=== PATIENT | male | born 1945 | race Caucasian/White ===

== ENCOUNTER 2023-12-04 07:52 | Inpatient (IN) | payer MEDICARE ==
[2023-11-30 14:52] LABS: BASOPHILS % 0.1 % (0.0-1.0); HEMATOCRIT 39.7 % (38.2-49.6); HEMOGLOBIN 12.4 g/dL (14.0-18.0); LYMPHOCYTES # (AUTO) 0.4 (1.0-3.2); LYMPHOCYTES % 3.2 % (18.0-39.1); MEAN CORPUSCULAR HEMOGLOBIN 29.8 pg (28-32); MEAN CORPUSCULAR HGB CONC 31.2 g/dL (31-35); MEAN CORPUSCULAR VOLUME 95.4 fL (81-99); MONOCYTES # (AUTO) 0.6 (0.2-0.8); MONOCYTES % 4.3 % (4.4-11.3); NEUTROPHILS # (AUTO) 12.5 (2.1-6.9); PLATELET COUNT 237 x10e3/uL (140-360); RED BLOOD COUNT 4.16 x10e6/uL (4.3-5.7); RED CELL DISTRIBUTION WIDTH 15.4 % (11.7-14.4); WHITE BLOOD COUNT 13.61 x10e3/uL (4.8-10.8)
[2023-12-04] VITALS (27 sets, daily range): BP systolic 138–208; BP diastolic 62–122; PULSE 53–99; RESP 14–27; TEMP 97.8–98.1; O2SAT 98–100
[~2023-12-04] VITALS: Ht 177.8 cm; Wt 76.9 kg
[~2023-12-04 07:52] MED LIST: CRESTOR10 MG PO; ELIQUIS5 MG PO; FLOMAX0.4 MG PO; FUROSEMIDE40 MG PO; JARDIANCE25 MG PO; LOSARTAN POTASS25 MG PO; LYRICA50 MG PO; METOPROLOL SUCC50 MG PO; MINOCYCLINE HC100 MG PO; PANTOPRAZOLE SO40 MG PO; TRAZODONE HCL50 MG PO
[2023-12-04] MEDS: DEXTROSE 5% 250ML 250 ML IV ONE (08:31)
[2023-12-04] MEDS: LACTATED RINGER'S 1,000 ML ONE (08:32)
[2023-12-04 11:02] LABS: INR 3.35; PROTHROMBIN TIME 35.5 seconds (11.9-14.5)
[2023-12-04 11:03] LABS: PARTIAL THROMBOPLASTIN TIME 77.4 seconds (23.8-35.5)
[2023-12-04] MEDS ORDERED: FENTANYL CITRATE/PF 100MCG/2 ML INJ ONE (11:41)
[2023-12-04 11:54] LABS: BASOPHILS % 0.3 % (0.0-1.0); EOSINOPHILS # (AUTO) 0.1 (0.0-0.4); EOSINOPHILS % 0.7 % (0.0-6.0); HEMATOCRIT 42.9 % (38.2-49.6); HEMOGLOBIN 13.3 g/dL (14.0-18.0); LYMPHOCYTES # (AUTO) 0.8 (1.0-3.2); LYMPHOCYTES % 6.9 % (18.0-39.1); MEAN CORPUSCULAR HEMOGLOBIN 30.2 pg (28-32); MEAN CORPUSCULAR VOLUME 97.5 fL (81-99); MONOCYTES # (AUTO) 0.3 (0.2-0.8); MONOCYTES % 2.5 % (4.4-11.3); NEUTROPHILS # (AUTO) 10.1 (2.1-6.9); NEUTROPHILS % 86.9 % (38.7-80.0); PLATELET COUNT 236 x10e3/uL (140-360); RED CELL DISTRIBUTION WIDTH 15.2 % (11.7-14.4); WHITE BLOOD COUNT 11.61 x10e3/uL (4.8-10.8)
[2023-12-04 12:20] LABS: TROPONIN I 0.029 ng/mL (0-0.300)
[2023-12-04 12:22] LABS: ALBUMIN 3.4 g/dL (3.5-5.0); ALBUMIN/GLOBULIN RATIO 0.9 (0.8-2.0); BILIRUBIN,TOTAL 0.6 mg/dL (0.2-1.2); CALCIUM 8.7 mg/dL (8.4-10.2); CREATININE, SERUM 1.2 mg/dL (0.72-1.25); TOTAL PROTEIN 7.3 g/dL (6.5-8.1)
[2023-12-04 12:27] LABS: INR 1.06; PROTHROMBIN TIME 14.5 seconds (11.9-14.5)
[2023-12-04 12:28] LABS: PARTIAL THROMBOPLASTIN TIME 24.7 seconds (23.8-35.5)
[2023-12-04] MEDS ORDERED: EPINEPHRINE HCL 1:1000 1ML 1 MG/ML AMP ONE (12:33)
[2023-12-04] MEDS ORDERED: LIDOCAINE HCL 2% LOCAL INJ 5 ML SDV VIAL INJ ONE (12:33)
[2023-12-04] MEDS ORDERED: PROPOFOL IV EMULSION 10 MG/ML 20 ML VIAL ONE (12:33)
[2023-12-04] MEDS ORDERED: PROPOFOL IV EMULSION 10 MG/ML 50 ML VIAL IV ONE (12:33)
[2023-12-04 13:25] LABS: ABG HCO3 27 mmol/L (22-26); ABG PCO2 52 mmHg (35-45); ABG PH 7.32 (7.35-7.45); ABG PO2 287 mmHg (80-105)
[2023-12-04 13:26] LABS: ABG TCO2 28
[2023-12-04] MEDS: POTASSIUM CHLORIDE 20MEQ/100ML 100 ML IV SCH (14:40)
[2023-12-04] MEDS: MUPIROCIN 2% OINT 22 GM TUBE TOP SCH (14:40)
[2023-12-04] MEDS ORDERED: SODIUM CHLORIDE 0.9% 1000 ML BAG ONE (17:03)
[2023-12-04] MEDS ORDERED: SODIUM CHLORIDE FLUSH 10 ML SYR ONE (17:03)
[2023-12-04] MEDS ORDERED: EPINEPHRINE HCL SYRINGE ONE (17:03)
[2023-12-04] MEDS ORDERED: DEXTROSE 50% SYRINGE 50 ML IV PRN (17:30)
[2023-12-04] MEDS ORDERED: LORAZEPAM INJ 2 MG/ML VIAL ONE (17:31)
[2023-12-04] MEDS: LORAZEPAM INJ 2 MG/ML VIAL IV ONE (17:50)
[2023-12-04] MEDS: HYDRALAZINE HCL 20 MG/ML VIAL IV PRN (18:03)
[2023-12-04 18:31] LABS: ABG HCO3 25 mmol/L (22-26); ABG PCO2 36 mmHg (35-45); ABG PH 7.44 (7.35-7.45); ABG PO2 187 mmHg (80-105); ABG TCO2 26
[2023-12-04] MEDS: LABETALOL HCL 5 MG/ML 20ML VIAL IV PRN (20:45)
[2023-12-04] MEDS: LEVETIRACETAM 500MG/5ML VIAL 1,500 MG in SODIUM CHLORIDE 0.9% 100 ML IV ONE (21:00)
[2023-12-04] MEDS: SIMVASTATIN 20 MG TAB PO SCH (21:00)
[2023-12-04] MEDS ORDERED: SODIUM CHLORIDE 0.9% 100 ML ONE (21:11)
[2023-12-05] VITALS (43 sets, daily range): BP systolic 129–198; BP diastolic 59–115; PULSE 44–114; RESP 13–21; TEMP 98.1–99.7; O2SAT 98–100
[2023-12-05 06:49] LABS: BASOPHILS % 0.1 % (0.0-1.0); HEMOGLOBIN 13.1 g/dL (14.0-18.0); LYMPHOCYTES # (AUTO) 0.7 (1.0-3.2); LYMPHOCYTES % 4.8 % (18.0-39.1); MEAN CORPUSCULAR HEMOGLOBIN 29.7 pg (28-32); MEAN CORPUSCULAR HGB CONC 31.2 g/dL (31-35); MEAN CORPUSCULAR VOLUME 95.2 fL (81-99); MONOCYTES # (AUTO) 0.8 (0.2-0.8); MONOCYTES % 5.9 % (4.4-11.3); NEUTROPHILS # (AUTO) 12.1 (2.1-6.9); NEUTROPHILS % 88.6 % (38.7-80.0); PLATELET COUNT 250 x10e3/uL (140-360); RED BLOOD COUNT 4.41 x10e6/uL (4.3-5.7); RED CELL DISTRIBUTION WIDTH 15.8 % (11.7-14.4); WHITE BLOOD COUNT 13.61 x10e3/uL (4.8-10.8)
[2023-12-05 07:16] LABS: ALBUMIN 3.4 g/dL (3.5-5.0); ANION GAP 15.5 mmol/L (8-16); BILIRUBIN,TOTAL 0.6 mg/dL (0.2-1.2); CALCIUM 9.1 mg/dL (8.4-10.2); CREATININE, SERUM 0.83 mg/dL (0.72-1.25); POTASSIUM 3.5 mmol/L (3.5-5.1); TOTAL PROTEIN 6.9 g/dL (6.5-8.1)
[2023-12-05] MEDS: LEVETIRACETAM 500MG/5ML VIAL 1,000 MG in SODIUM CHLORIDE 0.9% 100 ML IV SCH (08:03)
[2023-12-05] MEDS: TAMSULOSIN HCL 0.4 MG CAP PO SCH (08:03)
[2023-12-05] MEDS: INSULIN REGULAR, HUMAN 100 UNIT/1 ML SQ SCH (08:20)
[2023-12-05] MEDS: POTASSIUM CHLORIDE 20MEQ/100ML 200 ML IV ONE (09:07)
[2023-12-05 12:00] LABS: ABG HCO3 25 mmol/L (22-26); ABG PCO2 37 mmHg (35-45); ABG PH 7.44 (7.35-7.45); ABG PO2 203 mmHg (80-105); ABG TCO2 26
[2023-12-05] MEDS: SODIUM CHLORIDE 0.9% 250ML 250 ML ONE (12:45)
[2023-12-05] MEDS: LORAZEPAM INJ 2 MG/ML VIAL IV PRN (13:31)
[2023-12-05] MEDS ORDERED: HYDROMORPHONE 1MG/1ML INJ IV STA (18:04)
[2023-12-06] VITALS (42 sets, daily range): BP systolic 103–181; BP diastolic 48–108; PULSE 42–111; RESP 14–18; TEMP 97.4–100.3; O2SAT 100
[2023-12-06 06:15] LABS: BASOPHILS % 0.2 % (0.0-1.0); EOSINOPHILS % 0.3 % (0.0-6.0); HEMATOCRIT 41.9 % (38.2-49.6); HEMOGLOBIN 12.7 g/dL (14.0-18.0); LYMPHOCYTES # (AUTO) 0.7 (1.0-3.2); MEAN CORPUSCULAR HGB CONC 30.3 g/dL (31-35); MEAN CORPUSCULAR VOLUME 98.8 fL (81-99); MONOCYTES # (AUTO) 1.1 (0.2-0.8); NEUTROPHILS # (AUTO) 11.4 (2.1-6.9); NEUTROPHILS % 85.9 % (38.7-80.0); PLATELET COUNT 218 x10e3/uL (140-360); RED BLOOD COUNT 4.24 x10e6/uL (4.3-5.7); RED CELL DISTRIBUTION WIDTH 16.5 % (11.7-14.4); WHITE BLOOD COUNT 13.27 x10e3/uL (4.8-10.8)
[2023-12-06 06:50] LABS: ALBUMIN 3.1 g/dL (3.5-5.0); ALBUMIN/GLOBULIN RATIO 0.9 (0.8-2.0); ANION GAP 13.3 mmol/L (8-16); BILIRUBIN,TOTAL 0.8 mg/dL (0.2-1.2); CALCIUM 8.8 mg/dL (8.4-10.2); CREATININE, SERUM 0.91 mg/dL (0.72-1.25); POTASSIUM 4.3 mmol/L (3.5-5.1); TOTAL PROTEIN 6.7 g/dL (6.5-8.1)
[2023-12-06 09:25] LABS: ABG HCO3 27 mmol/L (22-26); ABG PCO2 43 mmHg (35-45); ABG PH 7.41 (7.35-7.45); ABG PO2 157 mmHg (80-105); ABG TCO2 28
[2023-12-06] MEDS: HEPARIN SOD (PORCINE) 5,000 UNIT/ML VIAL SC SCH (09:31)
[2023-12-06] MEDS ORDERED: DEXTROSE 50% SYRINGE 50 ML IV PRN (09:45)
[2023-12-06] MEDS: INSULIN LISPRO 100 UNIT/1 ML 3ML VIAL SQ SCH (12:00)
[2023-12-06] MEDS: LORAZEPAM INJ 2 MG/ML VIAL IV PRN (13:17)
[2023-12-06] MEDS: ACETAMINOPHEN 1000 MG/100 ML IV PRN (20:04)
[2023-12-06] MEDS: NALOXONE HCL INJ 0.4 MG/ML AMP ONE (21:39)
[2023-12-07] VITALS (52 sets, daily range): BP systolic 99–190; BP diastolic 45–104; PULSE 39–123; RESP 14–28; TEMP 98.3–99.6; O2SAT 100
[2023-12-07] MEDS ORDERED: MIDAZOLAM HCL 5MG/ML 10ML VIAL 100 ML IV PRN (07:00)
[2023-12-07 07:12] LABS: BASOPHILS % 0.2 % (0.0-1.0); EOSINOPHILS # (AUTO) 0.1 (0.0-0.4); HEMATOCRIT 40.5 % (38.2-49.6); HEMOGLOBIN 12.4 g/dL (14.0-18.0); LYMPHOCYTES # (AUTO) 0.8 (1.0-3.2); LYMPHOCYTES % 7.8 % (18.0-39.1); MEAN CORPUSCULAR HEMOGLOBIN 30.4 pg (28-32); MEAN CORPUSCULAR HGB CONC 30.6 g/dL (31-35); MEAN CORPUSCULAR VOLUME 99.3 fL (81-99); NEUTROPHILS # (AUTO) 8.3 (2.1-6.9); NEUTROPHILS % 80.3 % (38.7-80.0); PLATELET COUNT 191 x10e3/uL (140-360); RED BLOOD COUNT 4.08 x10e6/uL (4.3-5.7); RED CELL DISTRIBUTION WIDTH 16.2 % (11.7-14.4); WHITE BLOOD COUNT 10.35 x10e3/uL (4.8-10.8)
[2023-12-07 07:47] LABS: ANION GAP 12.7 mmol/L (8-16); BILIRUBIN,TOTAL 1.1 mg/dL (0.2-1.2); CALCIUM 8.7 mg/dL (8.4-10.2); CREATININE, SERUM 1.02 mg/dL (0.72-1.25); POTASSIUM 3.7 mmol/L (3.5-5.1); TOTAL PROTEIN 5.9 g/dL (6.5-8.1)
[2023-12-07] MEDS: LEVETIRACETAM 500MG/5ML VIAL 1,500 MG in SODIUM CHLORIDE 0.9% 100 ML IV SCH (10:00)
[2023-12-07 12:34] LABS: ABG PH 7.42 (7.35-7.45)
[2023-12-07 12:35] LABS: ABG HCO3 27 mmol/L (22-26); ABG PCO2 42 mmHg (35-45); ABG PO2 163 mmHg (80-105); ABG TCO2 28
[2023-12-07] MEDS ORDERED: FOSPHENYTOIN 50 MG/ML VIAL IV SCH (14:00)
[2023-12-08] VITALS (42 sets, daily range): BP systolic 105–180; BP diastolic 49–128; PULSE 89–106; RESP 10–25; TEMP 97.9–99; O2SAT 100
[2023-12-08 07:31] LABS: BASOPHILS % 0.2 % (0.0-1.0); EOSINOPHILS # (AUTO) 0.1 (0.0-0.4); EOSINOPHILS % 1.1 % (0.0-6.0); HEMATOCRIT 39.2 % (38.2-49.6); HEMOGLOBIN 12.1 g/dL (14.0-18.0); LYMPHOCYTES # (AUTO) 0.7 (1.0-3.2); LYMPHOCYTES % 6.7 % (18.0-39.1); MEAN CORPUSCULAR HEMOGLOBIN 30.5 pg (28-32); MEAN CORPUSCULAR HGB CONC 30.9 g/dL (31-35); MEAN CORPUSCULAR VOLUME 98.7 fL (81-99); NEUTROPHILS # (AUTO) 8.9 (2.1-6.9); NEUTROPHILS % 82.5 % (38.7-80.0); PLATELET COUNT 192 x10e3/uL (140-360); RED BLOOD COUNT 3.97 x10e6/uL (4.3-5.7); RED CELL DISTRIBUTION WIDTH 16.2 % (11.7-14.4); WHITE BLOOD COUNT 10.84 x10e3/uL (4.8-10.8)
[2023-12-08 07:44] LABS: ALBUMIN 2.8 g/dL (3.5-5.0); ALBUMIN/GLOBULIN RATIO 0.7 (0.8-2.0); ANION GAP 13.7 mmol/L (8-16); BILIRUBIN,TOTAL 0.9 mg/dL (0.2-1.2); CALCIUM 8.5 mg/dL (8.4-10.2); CREATININE, SERUM 0.84 mg/dL (0.72-1.25); POTASSIUM 3.7 mmol/L (3.5-5.1); TOTAL PROTEIN 6.6 g/dL (6.5-8.1)
== END 2023-12-08 20:10 | disposition hospice, inpatient (51) | DRG 314 ==
LOC: OR 07:52 → PACU V 10:53 → ICU 10:55
PROVIDERS: ADMIT Internal Medicine; ATTEND Internal Medicine
PROC: 03HY32Z Insertion of Monitoring Device into Upper Artery, Percutaneous Approach (ICD-10-PCS; 2023-12-04)
PROC: 4A133B1 Monitoring of Arterial Pressure, Peripheral, Percutaneous Approach (ICD-10-PCS; 2023-12-04)
PROC: 4A133J1 Monitoring of Arterial Pulse, Peripheral, Percutaneous Approach (ICD-10-PCS; 2023-12-04)
PROC: 02HV33Z Insertion of Infusion Device into Superior Vena Cava, Percutaneous Approach (ICD-10-PCS; 2023-12-04)
PROC: 0BH17EZ Insertion of Endotracheal Airway into Trachea, Via Natural or Artificial Opening (ICD-10-PCS; principal; 2023-12-04 09:33)
PROC: 5A1955Z Respiratory Ventilation, Greater than 96 Consecutive Hours (ICD-10-PCS; 2023-12-04 09:33)
DX: I97.121 Postprocedural cardiac arrest following other surgery (principal); G93.41 Metabolic encephalopathy; J96.01 Acute respiratory failure with hypoxia; G93.1 Anoxic brain damage, not elsewhere classified; G97.81 Other intraoperative complications of nervous system; I50.22 Chronic systolic (congestive) heart failure; I11.0 Hypertensive heart disease with heart failure; I25.10 Atherosclerotic heart disease of native coronary artery without angina pectoris; Z51.5 Encounter for palliative care; D50.9 Iron deficiency anemia, unspecified; N40.0 Benign prostatic hyperplasia without lower urinary tract symptoms; G25.3 Myoclonus; E87.6 Hypokalemia; I48.0 Paroxysmal atrial fibrillation; Z66 Do not resuscitate; I73.9 Peripheral vascular disease, unspecified; Z86.73 Personal history of transient ischemic attack (TIA), and cerebral infarction without residual deficits; E78.5 Hyperlipidemia, unspecified; Z95.1 Presence of aortocoronary bypass graft; Z95.0 Presence of cardiac pacemaker; Z87.891 Personal history of nicotine dependence; Z88.5 Allergy status to narcotic agent; Z95.828 Presence of other vascular implants and grafts; Z79.899 Other long term (current) drug therapy; Z79.01 Long term (current) use of anticoagulants
CPT/HCPCS: 31500; 36415; 36569; 36600; 43239; 45384; 70450; 71045; 74018; 80053; 80185; 82550; 82805; 82948; 84484; 85025; 85610; 85730; 92950; 93005; 93306; 94002; 94003; 95822; 96372; 99252; J0171; J0360; J1644; J2001; J2060; J2310; J2543; J3480; J7030; J7050; J7070; Q2009

== ENCOUNTER 2023-12-08 20:19 | Inpatient (IN) | payer OTHER ==
[~2023-12-08] VITALS: Ht 182.9 cm; Wt 76.8 kg
[2023-12-08] MEDS ORDERED: ACETAMINOPHEN 650 MG SUPP PR PRN (20:30)
[2023-12-08] MEDS ORDERED: ONDANSETRON HCL INJ 2MG/ML 2ML 2 MG/ML VIAL IV PRN (20:30)
[2023-12-08] MEDS ORDERED: LORAZEPAM 1 MG TAB PO ONE (20:30)
[2023-12-08 20:57] VITALS: BP 149/84; PULSE 97; RESP 14; TEMP 99; O2SAT 100
[2023-12-08 21:00] VITALS: BP 164/83; PULSE 92; RESP 14; TEMP 99; O2SAT 100
[2023-12-08] MEDS: HYDROMORPHONE 1MG/1ML INJ IV ONE (21:27)
[2023-12-08] MEDS: LORAZEPAM INJ 2 MG/ML VIAL IV ONE (21:28)
[2023-12-08] MEDS: LEVETIRACETAM 500MG/5ML VIAL 1,500 MG in SODIUM CHLORIDE 0.9% 100 ML IV SCH (21:29)
[2023-12-08] MEDS: SCOPOLAMINE 1 MG PATCH TOP PRN (21:48)
[2023-12-08] MEDS: SCOPOLAMINE 1 MG PATCH ONE (22:02)
[2023-12-08 22:22] VITALS: BP 142/81; PULSE 147; RESP 37; O2SAT 77
[2023-12-08] MEDS: HYDROMORPHONE 1MG/1ML INJ IV PRN (22:33)
[2023-12-08] MEDS: LORAZEPAM INJ 2 MG/ML VIAL IV PRN (22:34)
== END 2023-12-09 07:10 | disposition expired | DRG 951 ==
LOC: ICU 20:19
PROVIDERS: ADMIT Internal Medicine; ATTEND Internal Medicine
PROC: 5A1935Z Respiratory Ventilation, Less than 24 Consecutive Hours (ICD-10-PCS; principal; 2023-12-08)
DX: Z51.5 Encounter for palliative care (principal); J95.821 Acute postprocedural respiratory failure; Z99.11 Dependence on respirator [ventilator] status; G93.1 Anoxic brain damage, not elsewhere classified; I50.22 Chronic systolic (congestive) heart failure; I46.9 Cardiac arrest, cause unspecified; I25.10 Atherosclerotic heart disease of native coronary artery without angina pectoris; Z95.1 Presence of aortocoronary bypass graft; Z95.0 Presence of cardiac pacemaker; I73.9 Peripheral vascular disease, unspecified
CPT/HCPCS: J1170; J2060; J7050